=== PATIENT | female | born 1985 | race Caucasian/White ===

== ENCOUNTER → 2020-12-17 09:51 | Outpatient (CLI) | payer BC, SELFPAY ==
--- NOTE | ~2020-12-17 | US_ITS ---
US OB >= 14 weeks Fetus DATE: 12/17/2020 10:40 INDICATION: anatomy screen TECHNIQUE: Real-time imaging and Doppler analysis COMPARISON: None FINDINGS: Live single intrauterine gestation, fetus in vertex presentation, transverse lie. hea rt rate of 150 bpm. Posterior placenta, lower margin 2.1 cm above aishwarya. Subjectively normal amount of amniotic fluid. The cerebral ventricles and cerebellum are unremarkable. Normal cisterna magna. Normal nuchal f old normal. Upper lip normal. spine appears intact on transverse and longitudinal views. Four-c hamber heart. Outflow tracts appear normal. diaphragm is intact. Fluid is demonstrated in the stomach and urinary bladder. kidneys are unremarkable, without hydronephrosis. Three -vessel umbilical cord with normal insertion at abdominal wall. extremities are unremarka ble. Biparietal diameter 4.68 cm; 20 weeks 1 day Head circumference 17.16 cm; 19 weeks 5 days Abdominal circumference 16.24 cm; 21 weeks 2 days Femur length 3.14 cm; 19 weeks 5 days Composite age by Hadlock formula is 20 weeks 2 days +/- 1 week 3 days NEGAR 05/04/2021, compared to 05/05/2021 by LMP. Estimated weight 358.3 +/- 54 g. Estimated weight-GP: 66.3% Head circumference/abdominal circumference: 1.06, just below normal range of 1.07, 101.25 Femur length/head circumference: 18.31, within normal range of 16.54-19.94. IMPRESSION: Normal anatomy screen Estimated gestational age of 20 weeks 2 days +/- 1 week 3 days; NEGAR 05/04/2021 Reviewed, dictated and finalized at [facility]. Reviewed, dictated and finalized at location [facility]. CLING SORTER
== END ==
PROVIDERS: Visit Provider Obstetrics & Gynecology Gynecologic Oncology
DX: Z36.9 Encounter for antenatal screening, unspecified (principal); Z3A.20 20 weeks gestation of pregnancy
CPT/HCPCS: 76805

== ENCOUNTER 2023-11-04 07:39 | Outpatient (CLI) | payer OTHER, SELFPAY ==
--- NOTE | ~2023-11-04 | US_ITS ---
Limited Abdominal Sonogram: Real-time sonographic imaging of the right upper quadrant was performed. Clinical History: Abdominal pain Findings: The liver appears mildly echogenic, with no evidence of mass lesion or bile duct dilatatio n. Main portal vein demonstrates normal direction of flow. The gallbladder is well distended, and neelam ears normal with no evidence of gallstone or wall thickening. The common bile duct measures 3 mm. Th e visualized pancreas, aorta, and IVC are unremarkable. Right kidney measures 10.7 cm in length, with out evidence for hydronephrosis. Impression: Possible mild fatty infiltration of liver. Reviewed, dictated and finalized at location [facility]. ING [employer]AKER Impression: Possible mild fatty infiltration of liver.
== END 2023-11-04 07:40 ==
PROVIDERS: PCP Family Medicine; Visit Provider Family Medicine
DX: R11.0 Nausea (principal); R74.8 Abnormal levels of other serum enzymes
CPT/HCPCS: 76705

== ENCOUNTER 2024-05-20 00:33 | Day surgery (SDC) | payer OTHER, SELFPAY ==
[2024-05-15 09:10] VITALS: BMI 25.2
--- NOTE | 2024-05-15 09:18 | PC.NURSE ---
Report to the Outpatient Waiting Room, entrance under the green pavilion located off [facility], at time _0600_ on date _[id number]_. Planned Procedure Time: _0730_. Time changes happen often and if your time is changed the preop area will call you the afternoon before. - You and your visitor will be asked to self-screen and do not enter if you have any COVID symptoms. - A mask is optional within the hospital at this time. Patients may have clear liquids (water, carbonated beverages, clear teas, apple juice) until 3 hours prior to surgery with a maximum of 20 ounces. - No food from midnight until time of surgery Take the following medications with a SIP of water the morning of surgery: ____Bupropion DO NOT STOP ANY OF YOUR OTHER PRESCRIPTION MEDICATIONS PRIOR TO SURGERY ?EXCEPT THE FOLLOWING Medications to discontinue per physician None Date to take last dose Please no make-up, nail palestinian, hairspray, perfume, deodorant, or body powder the day of surgery. No jewelry (including any body piercings) or valuables the day of surgery, leave them at home. Please take a shower or bath the night before, or the morning of, surgery with an antibacterial soap. Wear comfortable, loose fitting clothing. - Jewelry must be removed prior to entering the operating room. Rings and piercings that are not removed may be cut off. - The hospital will not accept responsibility for valuables. - Please leave all valuables, including medications, at home the day of surgery. If you are going home after surgery, a licensed [place] driver must drive you home. - NO public transportation without another adult if you receive anesthesia. - We recommend that an adult stay with you for 24 hours following discharge. - We also recommend that you do not drive, make important decision, drink alcoholic beverages, or take any drugs that were not prescribed by your health care provider for at least 24 hours after your discharge time. Follow any additional instructions given to you from your surgeon. If you or anyone in your household have experienced Covid symptoms in the past week, please notify your surgeon or the nurse liaison at the phone number below for possible testing. Telephone instructions given to ___Laci____and asked if any additional questions and then verbalized understanding. Patient advised to call surgeon office or pre surgery nurse liaison [phone] if any additional questions.
--- NOTE | 2024-05-19 08:58 | PM.SD2 ---
Same Day Admit/Disch: HPI History of Present Illness Chief complaint: acalculous chronic cholecystitis Narrative: Ruperto Esposito is a 38 year old female who has had multiple episodes of postprandial right upper quadrant pain that radiates to her back and is associated with nausea. This is particularly noted with fatty meals. She had an ultrasound of the gallbladder which was negative. She had an hepatobiliary scan which was also normal with an ejection fraction of 47%. Patient did have elicitation of the right upper quadrant pain with the injection of CCK-8. She has tried reducing fat and her diet without success. After thorough discussion in the office, she is taken to surgery at this time for laparoscopic cholecystectomy for acalculous chronic cholecystitis. PMFSH Past Medical History Medical History Allergies Asthma Surgical History Surgical History S/P ACL surgery Family History Family History Mother Cervical cancer Grandparent Hypertension Cerebrovascular accident Father Hypertension Social History Social History Smoking status: Never smoker Alcohol intake: current Drinks per week: 1 Do You Feel Safe in your Home?: Yes Lack of Transportation: No Lack of Food: Never True Current Housing: I Have Housing Concerned About Future Housing: No Difficulty Paying Gas/Electric Bills: No Difficulty Paying for Meds: No Currently Unemployed: No Education: Master's Degree or Higher Difficulty w/ Childcare or Family Care: No Living arrangements: with family Occupation/Education: occupation Additional occupation/education comments: teacher Spiritual care concerns: No Same Day Admit/Disch: Med Pre-admit Medications Home Medications Medication Instructions Recorded Confirmed Type bupropion HCl 150 mg tablet,12 hr 150 mg PO DAILY 04/02/24 05/20/24 History sustained-release (Wellbutrin SR) ketorolac 10 mg tablet 10 mg PO Q6H 4 days #10 tabs 05/20/24 Rx oxycodone-acetaminophen 5 mg-325 0.5 - 1 tablet PO Q6H PRN pain #6 05/20/24 Rx mg tablet tabs Review of Systems Review of Systems All systems reviewed & are unremarkable except as noted in HPI and below (HPI) Exam Const: General: comfortable, no acute distress, alert and awake HENMT: Head: normocephalic and atraumatic Mouth: Yes Normal oral and palatal mucosa present Eyes: Conjunctivae: conjunctivae normal Pupils: Equal, round and reactive pupils present EOM: EOMs intact bilaterally Neck: Neck: normal visual inspection, no lymphadenopathy and nontender Resp: Effort & Inspection: normal respiratory effort Auscultation: clear to auscultation bilaterally Cardio: Rate: regular rate Rhythm: regular rhythm Heart sounds: no gallops, no murmurs and no rubs GI: Inspection: non-distended GI Palp: Yes Soft to palpation, No Tenderness to palpation present (GI), No Hepatomegaly present and No Splenomegaly present Skin: Lesions: no lesions Rashes: no rashes Neuro: General: no focal motor deficits and CN's II-XI intact bilaterally Cranial nerves: Yes Equal, round and reactive pupils present, Yes Bilaterally intact EOM present, Yes facial symmetry and Yes Midline tongue present Speech: normal speech Motor exam (neuro): 5/5 motor strength present throughout and Motor abnormalities not present Extrem: General: no clubbing, cyanosis or edema and edema Psych: Affect: normal affect Thought process: Normal thought process present Insight: Good insight present (Psych) DS: Summary Time Spent with Patient Time attestation: Total time spent providing and/or coordinating discharge services: DS: Admitting Diagnosis Discharge Date 05/20/2024 Admitting Diagnosis Acalculous chronic cholecystitis-after discus
[2024-05-20] VITALS (9 sets, daily range): BP systolic 102–127; BP diastolic 63–83; PULSE 61–92; RESP 12–18; TEMP 36.2–36.7; O2SAT 98–100
[2024-05-20] MEDS: LACTATED RINGERS 1,000 ML 30 ML IV CONT ×2 (06:15→08:22)
[2024-05-20] MEDS: ACETAMINOPHEN 500 MG TABLET 1000 MG PO (06:30)
[2024-05-20] MEDS: KETOROLAC 15 MG/ML VIAL (*BKC) IV PUSH (06:30)
--- NOTE | 2024-05-20 07:13 | P.PNAN_ITS ---
Anes - Initial Pre Proc Eval Procedure: Operation Date: 05/20/24 07:30 Proposed Procedures p Laparoscopic Cholecystectomy - Kike Soria MD Date/Time: 05/20/24 07:13 Surgeon: Kike Soria MD Pre Op Diagnosis: acalculous chronic cholecystitis Patient Data Age: 38 Gender: F Height: 1.75 m Weight: 77.7 kg Allergies Allergy/AdvReac Type Severity Reaction Status Date / Time No Known Allergies Allergy Verified 05/15/24 09:09 Home Medications Medication Instructions Recorded Confirmed Type bupropion HCl 150 mg tablet,12 hr 150 mg PO DAILY 04/02/24 05/15/24 History sustained-release (Wellbutrin SR) Patient hx anesthesia problems: none Family hx anesthesia problems: none Results Review: All pre-operative results and documents have been reviewed as part of the pre- operative evaluation. [facility] Past Medical History Medical History Allergies Asthma Surgical History Surgical History S/P ACL surgery Family History Family History Mother Cervical cancer Grandparent Hypertension Cerebrovascular accident Father Hypertension Social History Social History Smoking status: Never smoker Alcohol intake: current Drinks per week: 1 Do You Feel Safe in your Home?: Yes Lack of Transportation: No Lack of Food: Never True Current Housing: I Have Housing Concerned About Future Housing: No Difficulty Paying Gas/Electric Bills: No Difficulty Paying for Meds: No Currently Unemployed: No Education: Master's Degree or Higher Difficulty w/ Childcare or Family Care: No Living arrangements: with family Occupation/Education: occupation Additional occupation/education comments: teacher Spiritual care concerns: No Anes - Eval Final PreProcedure Day of Procedure 05/20/24 07:13 Patient weight: normal Heart: regular rate and rhythm Lungs: clear to auscultation Airway: Mallampati scale class II Neurological: alert and oriented Last oral intake: >/= 8 hours ASA classification: II Emergent: no Anesthetic plan: proceed Anesthesia type and monitoring: general ETT and standard monitoring Results Review: All pre-operative results and documents have been reviewed as part of the pre- operative evaluation. Informed Consent: The patient's anesthetic plan and its attendant risks and benefits were discussed with the patient/family/POA. Questions were solicited and answers provided to the satisfaction of the patient/family/POA.
--- NOTE | 2024-05-20 07:13 | WPDHPUPDATE1 ---
History and Physical Update Update Date/Time: 05/20/24 07:13 History and Physical has been reviewed, including an updated exam of the patient. There are NO changes in the patient's condition. Risks, benefits, and alternatives have been discussed and questions answered. Patient agrees to proceed with procedure.
[2024-05-20] MEDS: ceFAZolin 2 GM/D5W 50 ML 2 GM/50 ML BAG IVPB (07:23)
[2024-05-20] MEDS: BUPIVACAINE/EPINEPHRINE 0.5% 50 ML VIAL 30 ML INFILTRATE (07:52)
[2024-05-20 08:12] LABS: BEDSIDEPREGUCG Negative
--- NOTE | 2024-05-20 08:16 | W.PM.PROC2 ---
Procedure Note - Detailed Date of Procedure 05/20/24 Pre-op Diagnosis acalculous chronic cholecystitis Post-op Diagnosis Same Procedure Performed Laparoscopic cholecystectomy Surgeon Kike Soria MD Customer Marketing Manager Danielle Renner [facility] Anesthesia General and Local Indications Patient has had multiple episodes of postprandial right upper quadrant abdominal pain that radiates to her back. It is associated with nausea. She had a negative ultrasound and a normal HIDA scan. Symptoms are consistent with acalculous chronic cholecystitis and low-fat diet did not relieve her symptoms adequately. She is taken to surgery now for laparoscopic cholecystectomy. Findings Mild chronic inflammation. No gallstones appreciated. No biliary ductal dilatation and no liver abnormalities. Description of Procedure Patient was taken to surgery and induced into general anesthesia. The abdomen was prepped and draped. Trocars were placed in the usual fashion using [employer] optical trocars and a 5 mm camera. The varies needle was introduced prior to the initial trocar. Patient was placed in reverse Trendelenburg. A laparoscopic aspirator was used and the gallbladder was decompressed. The cholecystotomy was closed with a Vicryl endoloop. The gallbladder was then retracted anterosuperiorly. Dissection was carried out in the cholecystohepatic triangle. The cystic duct and cystic artery were dissected clearly. The cystic artery was actually on top of the cystic duct from this view which is unusual but can occur. The gallbladder was dissected off the liver its lower half. Critical view was achieved. I then securely clipped and divided the cystic artery and cystic duct. We continued to dissect the gallbladder free of its attachments to the liver. Cautery was used for hemostasis. Once the gallbladder was fully free of the liver, it was placed in Endo-Catch bag and retrieved without difficulty from the 10/11 epigastric trocar. We replaced the trocar and then reviewed the gallbladder fossa and right upper quadrant. Some irrigation and cautery were used but all looked good with no bleeding or bile leakage. We then evacuated CO2 and removed the trocar sleeves. Skin wounds were closed with subcuticular 4-0 Monocryl skin suture. The wounds were dressed with Exofin surgical adhesive. Patient was awakened and taken to recovery in good condition. Sponge needle counts were correct x2. Estimated Blood Loss -5 Drains No Packing No Pathology Yes (Gallbladder) Complications None Condition Stable Disposition PACU [facility] Billing Surgery - Charge Forward: Surgery Billing (Laparoscopic cholecystectomy)
--- NOTE | 2024-05-20 09:00 | SUR.PHASEI ---
0858: Simple mask removed.
== END 2024-05-20 09:55 | disposition home or self-care (01) ==
PROVIDERS: PCP Family Medicine; Visit Provider Surgery
PROC: 0FT44ZZ Resection of Gallbladder, Percutaneous Endoscopic Approach (ICD-10-PCS; CPT 47562; principal; 2024-05-20 07:30)
DX: K81.1 Chronic cholecystitis (principal)
CPT/HCPCS: 47562; 88304; A9270; J0690; J1100; J1170; J1885; J2250; J2405; J2704; J3010; J7120